=== PATIENT | male | born 1965 | race Caucasian/White ===

== ENCOUNTER 2019-02-03 05:56 | Outpatient (CLI) | payer OTHER ==
[~2019-02-03] VITALS: Ht 182.9 cm; Wt 105.7 kg
[~2019-02-03 05:56] MED LIST: PRD10T PO; PRD20T PO
[2019-02-03] MEDS ORDERED: LISI-552 PO (09:32)
== END 2019-02-03 09:34 | disposition home or self-care (01) ==
LOC: PREOP 05:56
PROVIDERS: ATTEND Surgery
DX: Z01.818 Encounter for other preprocedural examination (principal)

== ENCOUNTER 2019-02-05 09:03 | Day surgery (SDC) | payer OTHER ==
[~2019-02-05] VITALS: Ht 182.9 cm; Wt 105.7 kg
[~2019-02-05 09:03] MED LIST changes: +LISI-552 PO
[2019-02-05 09:10] VITALS: BP 126/74
[2019-02-05] MEDS ORDERED: LACTATED RINGERS 1,000 ML IV STA (09:12)
[2019-02-05] MEDS ORDERED: LACTATED RINGERS 1,000 ML IV ONE (09:14)
[2019-02-05] MEDS ORDERED: HURRICAINE EXT TUBE (BENZOCAINE) XX PRN (09:15)
[2019-02-05] MEDS ORDERED: MIDAZOLAM 2 MG/2 ML (VERSED) VIAL ONE ×2 (10:45)
[2019-02-05] MEDS ORDERED: proPOfol 200 MG/20 ML (DIPRIVAN) VIAL IV ONE (10:45)
--- NOTE | 2019-02-05 10:50 | Progress Note-Pre Operative ---
Pre-Operative Progress Note H&P Reviewed The H&P was reviewed, patient examined and no changes noted. Date Seen by Provider: Feb 05, 2019 Time Seen by Provider: 10:49 Date H&P Reviewed: Feb 05, 2019 Time H&P Reviewed: 10:50 Pre-Operative Diagnosis: epigastric abdominal pain, screening colonoscopy ROLANDO DALE DO Feb 05, 2019 10:50
[2019-02-05] MEDS ORDERED: HURRICAINE EXT TUBE (BENZOCAINE) ONE (10:51)
[2019-02-05] MEDS ORDERED: fentaNYL INJECTION 100 MCG/2 ML AMP ONE (10:57)
--- NOTE | 2019-02-05 11:37 | Progress Note-Post Operative ---
Post-Operative Progess Note Surgeon (s)/Ms Access Database Developer (s) Surgeon ROLANDO DALE DO Ms Access Database Developer: na Pre-Operative Diagnosis epigastric abdominal pain, screening colonoscopy Post-Operative Diagnosis duodenitis, healing antral ulcer, small hiatal hernia, minimal diverticulosis Procedure & Operative Findings Date of Procedure 02/05/19 Procedure Performed/Findings egd c biopsies, colonoscopy Anesthesia Type per [facility] Estimated Blood Loss Estimated blood loss (mL): none Specimens/Packing Specimens Removed duodenum, antrum, ge ROLANDO DALE DO Feb 05, 2019 11:37
[2019-02-05] MEDS ORDERED: SUCR1TAB36 PO (11:38)
[2019-02-05] MEDS ORDERED: PANT40TA2 PO (11:38)
--- NOTE | 2019-02-05 11:41 | Discharge Inst-Simple/Standard ---
Discharge Inst-Standard Discharge Medications New, Converted or Re-Newed RX: Transmitted to Pharmacy Patient Instructions/Follow Up Plan of Care/Instructions/FU: 2 weeks Shayla Activity as Tolerated: Yes Discharge Diet: Regular Diet ROLANDO DALE DO Feb 05, 2019 11:41
[2019-02-05 11:45] VITALS: BP 119/77
[2019-02-05 12:15] VITALS: BP 110/75
[2019-02-05 12:22] VITALS: BP 110/75
--- NOTE | 2019-02-05 12:26 | Anesthesia-General Post-Op ---
MAC Patient Condition Mental Status/LOC: Same as Preop Cardiovascular: Satisfactory Nausea/Vomiting: Absent Respiratory: Satisfactory Pain: Controlled Complications: Absent Post Op Complications Complications None Follow Up Care/Instructions Patient Instructions None needed. Anesthesiology Discharge Order Discharge Order Patient is doing well, no complaints, stable vital signs, no apparent adverse anesthesia problems. No complications reported per nursing. BENJY DUNLAP CRNA Feb 05, 2019 12:25
--- NOTE | 2019-02-06 02:23 | OPERATIVE REPORT ---
DATE OF SERVICE: 02/05/2019 PREOPERATIVE DIAGNOSES: Epigastric abdominal pain, screening colonoscopy, history of colitis. POSTOPERATIVE DIAGNOSES: Duodenitis, antral healing ulcer, small hiatal hernia, diverticulosis. PROCEDURE: EGD with biopsies, colonoscopy. SURGEON: Rolando Mcguire DO ANESTHESIA: Per MDA. ESTIMATED BLOOD LOSS: None. COMPLICATIONS: None. INDICATIONS: The patient is a 53-year-old male who has been having epigastric abdominal pain. It is minimally improved taking Zantac. He also has history of colitis. Previously, he is due for a screening colonoscopy. He understands risks and benefits of procedure and wished to proceed with procedure. Consent was signed in the chart. DESCRIPTION OF PROCEDURE: The patient was taken to the endoscopy suite, placed in left lateral recumbent position. Timeout was performed. Scope was inserted in mouth, down the esophagus, stomach and duodenum without difficulty. No polyps, mass or ulcerations of the second portion of duodenum. The scope was slowly retracted back into the first portion of duodenum, which had erythematous changes present. Biopsy was obtained. Scope was then slowly retracted back and stomach was further insufflated. In the antrum, there is the appearance of healing antral ulcer. Biopsy of the antrum was obtained. Scope was retroflexed noting a small hiatal hernia, no other pathology noted. Scope was returned to its normal position, slowly withdrawn to the distal esophagus. No polyps, masses, ulcerations or any significant erythematous changes in the distal esophagus. Biopsy of GE junction was obtained. Scope was then slowly retracted back to completely remove. The patient tolerated procedure well without any complications. Digital rectal exam was performed. There were no palpable polyps, masses or ulcerations. Scope was inserted into the rectum and advanced all the way to the cecum with minimal difficulty. There are no polyps, masses or ulcerations in the cecum. Prep was adequate. Scope was slowly retracted back. No polyps, mass or ulceration in the cecum, ascending, transverse, descending and sigmoid colon. In the sigmoid colon, very minimal diverticulosis present. Scope was continued to be retracted back into the rectum, where it was also retroflexed noting no other pathology. Scope was returned to its normal position, slowly withdrawn until completely removed. The patient tolerated procedure well without complications. He was taken to recovery room in stable condition. RECOMMENDATIONS: The patient to be placed on Protonix 40 mg daily, Carafate 1 gram four times a day. We will plan on followup in 2 weeks to see are and discuss pathology. The patient also recommended high-fiber diet. The patient will need repeat colonoscopy in 10 years unless family history of colon cancer, which would then be 5 years. If the patient has any problems before that, he should be seen at that time. Job ID: [id number] DocumentID: [id number] Dictated Date: 02/05/2019 16:27:45 Truck Body Builder Date: 02/06/2019 02:22:13 Dictated By: ROLANDO MCGUIRE DO
== END 2019-02-05 12:23 | disposition home or self-care (01) ==
LOC: ENDO 09:03
PROVIDERS: ATTEND Surgery
DX: Z12.11 Encounter for screening for malignant neoplasm of colon (principal); K57.30 Diverticulosis of large intestine without perforation or abscess without bleeding; K29.80 Duodenitis without bleeding; K25.9 Gastric ulcer, unspecified as acute or chronic, without hemorrhage or perforation; K21.9 Gastro-esophageal reflux disease without esophagitis; K44.9 Diaphragmatic hernia without obstruction or gangrene; I10 Essential (primary) hypertension; Z87.19 Personal history of other diseases of the digestive system; Z79.899 Other long term (current) drug therapy